=== PATIENT | male | born 1975 | race African-American/Black ===

== ENCOUNTER 2016-05-24 19:56 | Inpatient (IN) | payer MEDICAID, OTHER ==
[~2016-05-24] VITALS: Ht 167.6 cm; Wt 65.1 kg
[~2016-05-24 19:56] MED LIST: GABA-529 PO; IBUP-1546 PO; TRAM50TA4 PO
[2016-05-24] MEDS ORDERED: LORazepam 2 MG/ML VIAL IM ONE (22:15)
[2016-05-24] MEDS ORDERED: HALOPERIDOL LACTATE 5 MG/ML VIAL IM ONE (22:15)
[2016-05-24] MEDS ORDERED: DiphenhydrAMINE HCL 50 MG/ML VIAL IM ONE (22:15)
[2016-05-25] MEDS ORDERED: HALOPERIDOL 5 MG TABLET PO PRN (00:15)
[2016-05-25] MEDS ORDERED: ZOLPIDEM TARTRATE 10 MG TABLET PO PRN (00:15)
[2016-05-25 00:20] VITALS: BP 133/79
[2016-05-25 00:20] LABS: BASOPHILS # (AUTO) 0.03 K/uL (0.00-0.20); BASOPHILS % (AUTO) 0.4 % (0.0-2.0); EOSINOPHILS # (AUTO) 0.29 K/uL (0.00-0.70); HEMATOCRIT 42.9 % (41-53); HEMOGLOBIN 14.6 g/dL (13.5-17.5); LYMPHOCYTES # (AUTO) 2.3 K/uL (1.0-4.8); LYMPHOCYTES % (AUTO) 26.4 % (22.0-44.0); MEAN CORPUSCULAR HEMOGLOBIN 31.8 pg (26.0-34.0); MEAN CORPUSCULAR HGB CONC 33.9 G/dL (31.0-37.0); MEAN CORPUSCULAR VOLUME 94 fL (80-100); MONOCYTES # (AUTO) 0.8 K/uL (0.1-1.0); MONOCYTES % (AUTO) 9.5 % (2.0-9.0); NEUTROPHILS # (AUTO) 5.2 K/uL (1.8-7.7); NEUTROPHILS % (AUTO) 60.4 % (40.0-70.0); PLATELET COUNT (AUTO) 321 K/uL (150-450); RED BLOOD CELL COUNT(AUTO) 4.58 MIL/uL (4.50-5.90); RED CELL DISTRIBUTION WIDTH 14.5 % (11.5-14.5); WHITE BLOOD COUNT (AUTO) 8.7 K/uL (4.5-11.0)
[2016-05-25 00:27] LABS: ANION GAP 10 mmol/L (8-16); CALCIUM, TOTAL 8.6 mg/dL (8.8-10.5); CARBON DIOXIDE 28 mmol/L (22-29); CHLORIDE 104 mmol/L (98-107); CREATININE 1.28 mg/dL (0.60-1.30); GLOMERULAR FILTR. RATE CALC > 60 mL/min (>60); POTASSIUM 3.7 mmol/L (3.5-5.1); SODIUM SERUM 142 mmol/L (136-145); UREA NITROGEN, BLOOD 23 mg/dL (7-18)
[2016-05-25 00:28] VITALS: BP_SYST 100
[2016-05-25 00:33] LABS: ALANINE AMINOTRANSFERASE 24 U/L (12-78); ALBUMIN 4.1 g/dL (3.4-5.0); ASPARTATE AMINOTRANSFERASE 19 U/L (15-37); BILIRUBIN,TOTAL 0.3 mg/dL (0.1-1.0); TOTAL PROTEIN, SERUM 7.3 g/dL (6.4-8.2)
[2016-05-25] MEDS ORDERED: INFLUENZA VIRUS VACCINE QVS 2016-17 (3YR+)/PF 60 MCG/0.5 ML SYRINGE IM ONE (01:00)
[2016-05-25] MEDS: GABAPENTIN 100 MG CAPSULE PO SCH ×2 (11:51→18:21)
[2016-05-25] MEDS: BENZTROPINE MESYLATE 0.5 MG TABLET PO SCH (21:53)
[2016-05-25] MEDS: HALOPERIDOL 5 MG TABLET PO SCH (21:53)
[2016-05-26 08:30] VITALS: BP 124/61
[2016-05-26] MEDS: BENZTROPINE MESYLATE 0.5 MG TABLET PO SCH ×2 (09:00→20:24)
[2016-05-26] MEDS: GABAPENTIN 100 MG CAPSULE PO SCH ×2 (09:00→16:30)
[2016-05-26] MEDS: HALOPERIDOL 5 MG TABLET PO SCH ×2 (09:00→20:25)
[2016-05-26 09:10] VITALS: BP 124/61
[2016-05-26 16:21] VITALS: BP 121/72
[2016-05-27 08:30] VITALS: BP 142/93
[2016-05-27] MEDS: HALOPERIDOL 5 MG TABLET PO SCH ×3 (08:52→20:49)
[2016-05-27] MEDS: LORazepam 2 MG TABLET PO PRN ×2 (08:52→17:56)
[2016-05-27] MEDS: BENZTROPINE MESYLATE 0.5 MG TABLET PO SCH ×2 (08:52→20:48)
[2016-05-27] MEDS: GABAPENTIN 100 MG CAPSULE PO SCH ×2 (08:52→17:56)
[2016-05-27 09:46] VITALS: BP 142/93
[2016-05-28] MEDS: GABAPENTIN 100 MG CAPSULE PO SCH ×2 (09:00→17:51)
[2016-05-28] MEDS: HALOPERIDOL 5 MG TABLET PO SCH ×2 (09:00→20:43)
[2016-05-28 09:07] VITALS: BP 115/68
[2016-05-28] MEDS: BENZTROPINE MESYLATE 0.5 MG TABLET PO SCH ×2 (09:11→20:43)
[2016-05-28] MEDS: LORazepam 2 MG TABLET PO PRN ×2 (10:31→19:45)
[2016-05-28 16:30] VITALS: BP 130/68
[2016-05-29] MEDS: GABAPENTIN 100 MG CAPSULE PO SCH (08:43)
[2016-05-29] MEDS: HALOPERIDOL 5 MG TABLET PO SCH (08:43)
[2016-05-29] MEDS: BENZTROPINE MESYLATE 0.5 MG TABLET PO SCH (08:43)
[2016-05-29 09:18] VITALS: BP 138/76
[2016-05-29] MEDS ORDERED: HALO5 PO (10:16)
[2016-05-29] MEDS ORDERED: BENZ0.5T6 PO (10:17)
== END 2016-05-29 10:40 | disposition home or self-care (01) | DRG 751 ==
LOC: EEVIPCON 19:58 → EMS 19:58 → 3EC 23:30
PROVIDERS: ADMIT Psychiatry & Neurology Psychiatry; ATTEND Psychiatry & Neurology Psychiatry
DX: F29 Unspecified psychosis not due to a substance or known physiological condition (principal); F15.20 Other stimulant dependence, uncomplicated; M54.5 Low back pain; G47.00 Insomnia, unspecified; F20.0 Paranoid schizophrenia; E55.9 Vitamin D deficiency, unspecified; F12.90 Cannabis use, unspecified, uncomplicated; F17.210 Nicotine dependence, cigarettes, uncomplicated; Z28.21 Immunization not carried out because of patient refusal; Z91.14 Patient's other noncompliance with medication regimen; Z79.899 Other long term (current) drug therapy; Z59.0 Homelessness; Z71.51 Drug abuse counseling and surveillance of drug abuser; Z71.6 Tobacco abuse counseling
CPT/HCPCS: 82306; 96372; 99285; G0480; J1200; J1630; J2060

== ENCOUNTER 2019-08-13 17:23 | Emergency (ER) | payer MEDICAID, OTHER ==
[~2019-08-13] VITALS: Ht 167.6 cm; Wt 77.3 kg
[~2019-08-13 17:23] MED LIST changes: +BENZ0.5T44 PO; +GABA-1216 PO; -GABA-529 PO; +HALO5TAB2 PO; -IBUP-1546 PO; -TRAM50TA4 PO
[2019-08-13 18:06] VITALS: BP 117/77
[2019-08-13] MEDS: LIDOCAINE 1% 10 ML VIAL INJ ONE (18:06)
[2019-08-13] MEDS: BACITRACIN 0.9 GM PACKET OINTMENT TP ONE (18:06)
[2019-08-13] MEDS: HALOPERIDOL LACTATE 5 MG/ML VIAL IM ONE (18:29)
[2019-08-13] MEDS: LORazepam 2 MG/ML VIAL IM ONE (18:30)
[2019-08-13] MEDS: IBUPROFEN 600 MG TABLET PO ONE (18:31)
[2019-08-13 18:47] LABS: BASOPHILS % (AUTO) 0.6 % (0.0-2.0); EOSINOPHILS % (AUTO) 2.9 % (1.0-6.0); HEMATOCRIT 42.1 % (41-53); LYMPHOCYTES # (AUTO) 2.2 K/uL (1.0-4.8); LYMPHOCYTES % (AUTO) 19.5 % (22.0-44.0); MEAN CORPUSCULAR HEMOGLOBIN 31.7 pg (26.0-34.0); MEAN CORPUSCULAR HGB CONC 33.4 G/dL (31.0-37.0); MEAN CORPUSCULAR VOLUME 95 fL (80-100); MONOCYTES # (AUTO) 1.1 K/uL (0.1-1.0); MONOCYTES % (AUTO) 9.9 % (2.0-9.0); NEUTROPHILS # (AUTO) 7.7 K/uL (1.8-7.7); NEUTROPHILS % (AUTO) 67.1 % (40.0-70.0); PLATELET COUNT (AUTO) 280 K/uL (150-450); RED BLOOD CELL COUNT(AUTO) 4.42 MIL/uL (4.50-5.90); RED CELL DISTRIBUTION WIDTH 13.6 % (11.5-14.5)
[2019-08-13 18:50] LABS: AMPHET/METH SCREEN,URINE POSITIVE (NEGATIVE); BARBITURATE SCREEN, URINE NEGATIVE (NEGATIVE); BENZODIAZEPINES SCREEN,URINE NEGATIVE (NEGATIVE); CANNABINOID SCREEN,URINE POSITIVE (NEGATIVE); COCAINE SCREEN,URINE NEGATIVE (NEGATIVE); METHADONE SCREEN, URINE NEGATIVE (NEGATIVE); OPIATE SCREEN,URINE NEGATIVE (NEGATIVE)
[2019-08-13 18:52] LABS: PHENCYCLIDINE SCREEN,URINE POSITIVE (NEGATIVE)
[2019-08-13 18:54] LABS: ANION GAP 10 mmol/L (8-16); CALCIUM, TOTAL 8.9 mg/dL (8.8-10.5); CARBON DIOXIDE 31 mmol/L (22-29); CHLORIDE 106 mmol/L (98-107); CREATININE 1.37 mg/dL (0.60-1.30); GLOMERULAR FILTR. RATE CALC > 60 mL/min (>60); GLUCOSE,RANDOM 79 mg/dL (70-110); SODIUM SERUM 147 mmol/L (136-145); UREA NITROGEN, BLOOD 14 mg/dL (7-18)
[2019-08-13 19:00] LABS: ALANINE AMINOTRANSFERASE 29 U/L (12-78); ALBUMIN 4.1 g/dL (3.4-5.0); ALKALINE PHOSPHATASE 86 U/L (46-116); ASPARTATE AMINOTRANSFERASE 21 U/L (15-37); BILIRUBIN,TOTAL 0.6 mg/dL (0.1-1.0); TOTAL PROTEIN, SERUM 7.8 g/dL (6.4-8.2)
== END 2019-08-13 21:20 | disposition home or self-care (01) ==
LOC: EMS 17:29
DX: S05.42XA Penetrating wound of orbit with or without foreign body, left eye, initial encounter (principal); F15.10 Other stimulant abuse, uncomplicated; F20.0 Paranoid schizophrenia; F16.10 Hallucinogen abuse, uncomplicated; F17.210 Nicotine dependence, cigarettes, uncomplicated; F12.90 Cannabis use, unspecified, uncomplicated; F19.90 Other psychoactive substance use, unspecified, uncomplicated; Y04.0XXA Assault by unarmed brawl or fight, initial encounter; Y93.89 Activity, other specified; Y92.89 Other specified places as the place of occurrence of the external cause; Y99.8 Other external cause status
CPT/HCPCS: 12013; 36415; 80053; 80307; 85025; 96372; 99284; 99406; G0480; J1630; J2060; J3490

== ENCOUNTER 2019-08-31 09:51 | Emergency (ER) | payer OTHER ==
[~2019-08-31] VITALS: Ht 167.6 cm; Wt 80.9 kg
[2019-08-31 10:14] VITALS: BP 109/58
== END 2019-08-31 10:37 | disposition home or self-care (01) ==
LOC: EMS 09:59
DX: S01.112D Laceration without foreign body of left eyelid and periocular area, subsequent encounter (principal); F17.210 Nicotine dependence, cigarettes, uncomplicated; F12.90 Cannabis use, unspecified, uncomplicated; F15.90 Other stimulant use, unspecified, uncomplicated; X58.XXXD Exposure to other specified factors, subsequent encounter
CPT/HCPCS: 99406

== ENCOUNTER 2019-09-24 14:20 | Emergency (ER) | payer OTHER ==
[~2019-09-24] VITALS: Ht 167.6 cm; Wt 79.5 kg
[2019-09-24] MEDS ORDERED: BACITRACIN 0.9 GM PACKET OINTMENT TP ONE (15:00)
[2019-09-24] MEDS ORDERED: CEPHALEXIN MONOHYDRATE 500 MG CAPSULE PO ONE (15:00)
[2019-09-24 15:50] VITALS: BP 113/67
== END 2019-09-24 16:08 | disposition home or self-care (01) ==
LOC: EMS 14:24
DX: L03.116 Cellulitis of left lower limb (principal); B35.3 Tinea pedis; F31.9 Bipolar disorder, unspecified; F20.9 Schizophrenia, unspecified; F17.210 Nicotine dependence, cigarettes, uncomplicated; F12.90 Cannabis use, unspecified, uncomplicated; F19.90 Other psychoactive substance use, unspecified, uncomplicated

== ENCOUNTER 2020-01-09 13:58 | Emergency (ER) | payer OTHER ==
[~2020-01-09] VITALS: Ht 167.6 cm; Wt 81.8 kg
[2020-01-09] MEDS ORDERED: TOLNAFTATE 1% TP ONE (14:45)
[2020-01-09 15:17] LABS: BASOPHILS % (AUTO) 0.9 % (0.0-2.0); EOSINOPHILS % (AUTO) 4.6 % (1.0-6.0); HEMATOCRIT 39.8 % (41-53); HEMOGLOBIN 13.5 g/dL (13.5-17.5); LYMPHOCYTES # (AUTO) 1.6 K/uL (1.0-4.8); LYMPHOCYTES % (AUTO) 20.8 % (22.0-44.0); MEAN CORPUSCULAR HGB CONC 33.9 G/dL (31.0-37.0); MEAN CORPUSCULAR VOLUME 97 fL (80-100); MONOCYTES # (AUTO) 0.7 K/uL (0.1-1.0); MONOCYTES % (AUTO) 9.7 % (2.0-9.0); NEUTROPHILS # (AUTO) 4.9 K/uL (1.8-7.7); PLATELET COUNT (AUTO) 284 K/uL (150-450); RED BLOOD CELL COUNT(AUTO) 4.09 MIL/uL (4.50-5.90); RED CELL DISTRIBUTION WIDTH 13.8 % (11.5-14.5)
[2020-01-09 15:30] LABS: ANION GAP 2 mmol/L (8-16); CARBON DIOXIDE 32 mmol/L (22-29); CHLORIDE 106 mmol/L (98-107); CREATININE 1.31 mg/dL (0.60-1.30); GLUCOSE,RANDOM 96 mg/dL (70-110); POTASSIUM 4.1 mmol/L (3.5-5.1); SODIUM SERUM 140 mmol/L (136-145); UREA NITROGEN, BLOOD 12 mg/dL (7-18)
[2020-01-09 15:31] LABS: CALCIUM, TOTAL 8.3 mg/dL (8.8-10.5); GLOMERULAR FILTR. RATE CALC > 60 mL/min (>60)
[2020-01-09 15:36] LABS: ALANINE AMINOTRANSFERASE 28 U/L (12-78); ALBUMIN 3.7 g/dL (3.4-5.0); ALKALINE PHOSPHATASE 98 U/L (46-116); ASPARTATE AMINOTRANSFERASE 17 U/L (15-37); BILIRUBIN,TOTAL 0.2 mg/dL (0.1-1.0); TOTAL PROTEIN, SERUM 7.2 g/dL (6.4-8.2)
[2020-01-09 15:54] VITALS: BP 135/83
== END 2020-01-09 16:18 | disposition home or self-care (01) ==
LOC: EMS 13:58
DX: F15.10 Other stimulant abuse, uncomplicated (principal); F41.9 Anxiety disorder, unspecified; F31.9 Bipolar disorder, unspecified; F20.9 Schizophrenia, unspecified; F17.210 Nicotine dependence, cigarettes, uncomplicated; F12.90 Cannabis use, unspecified, uncomplicated
CPT/HCPCS: 36415; 80053; 85025; 99283; G0480

== ENCOUNTER 2020-04-11 00:58 | Emergency (ER) | payer OTHER ==
[~2020-04-11] VITALS: Ht 167.6 cm; Wt 80.9 kg
[2020-04-11] MEDS ORDERED: ACETAMINOPHEN 325 MG TABLET PO ONE (02:00)
[2020-04-11] MEDS ORDERED: PERTUSS(ACELL),DIPH,TET VAC/PF 0.5 ML VIAL IM ONE (02:30)
[2020-04-11 03:11] VITALS: BP 122/83
== END 2020-04-11 03:35 | disposition home or self-care (01) ==
LOC: EMS 00:59
DX: S02.2XXA Fracture of nasal bones, initial encounter for closed fracture (principal); H11.33 Conjunctival hemorrhage, bilateral; J45.909 Unspecified asthma, uncomplicated; F31.9 Bipolar disorder, unspecified; F20.9 Schizophrenia, unspecified; F17.210 Nicotine dependence, cigarettes, uncomplicated; F12.90 Cannabis use, unspecified, uncomplicated; F19.90 Other psychoactive substance use, unspecified, uncomplicated; W50.1XXA Accidental kick by another person, initial encounter; Y93.89 Activity, other specified; Y92.89 Other specified places as the place of occurrence of the external cause; Y99.8 Other external cause status
CPT/HCPCS: 70450; 70486; 90471; 90715; 99285

== ENCOUNTER 2020-05-30 19:10 | Emergency (ER) | payer OTHER ==
[~2020-05-30] VITALS: Ht 167.6 cm; Wt 81.8 kg
[2020-05-30] MEDS ORDERED: LORazepam 0.5 MG TABLET PO ONE (20:00)
[2020-05-30] MEDS ORDERED: LORazepam 1 MG TABLET PO ONE (20:00)
[2020-05-30 20:13] LABS: BASOPHILS % (AUTO) 0.9 % (0.0-2.0); HEMATOCRIT 41.5 % (41-53); HEMOGLOBIN 13.8 g/dL (13.5-17.5); LYMPHOCYTES # (AUTO) 2.2 K/uL (1.0-4.8); LYMPHOCYTES % (AUTO) 25.9 % (22.0-44.0); MEAN CORPUSCULAR HEMOGLOBIN 32.1 pg (26.0-34.0); MEAN CORPUSCULAR HGB CONC 33.3 G/dL (31.0-37.0); MEAN CORPUSCULAR VOLUME 96 fL (80-100); MONOCYTES # (AUTO) 0.8 K/uL (0.1-1.0); MONOCYTES % (AUTO) 9.4 % (2.0-9.0); NEUTROPHILS # (AUTO) 4.9 K/uL (1.8-7.7); NEUTROPHILS % (AUTO) 57.8 % (40.0-70.0); PLATELET COUNT (AUTO) 262 K/uL (150-450); RED BLOOD CELL COUNT(AUTO) 4.31 MIL/uL (4.50-5.90); RED CELL DISTRIBUTION WIDTH 13.5 % (11.5-14.5)
[2020-05-30 20:32] LABS: CALCIUM, TOTAL 8.4 mg/dL (8.8-10.5); CREATININE 1.34 mg/dL (0.60-1.30); POTASSIUM 3.7 mmol/L (3.5-5.1)
[2020-05-30 20:34] LABS: ALBUMIN 3.8 g/dL (3.4-5.0); BILIRUBIN,TOTAL 0.4 mg/dL (0.1-1.0); TOTAL PROTEIN, SERUM 7.3 g/dL (6.4-8.2)
[2020-05-30 21:13] VITALS: BP 130/82
== END 2020-05-30 21:25 | disposition home or self-care (01) ==
LOC: EMS 19:10
DX: N64.4 Mastodynia (principal); F19.10 Other psychoactive substance abuse, uncomplicated
CPT/HCPCS: 93005; 99285; 36415-L1; 36415-TC; 71045-TC

== ENCOUNTER 2021-11-08 09:48 | Inpatient (IN) | payer OTHER ==
[~2021-11-08] VITALS: Ht 167.6 cm; Wt 81.6 kg
[~2021-11-08 09:48] MED LIST changes: -BENZ0.5T44 PO; +BENZ0.5T49 PO
[2021-11-08] MEDS ORDERED: KETOROLAC TROMETHAMINE 30 MG/ML VIAL IVP ONE (10:45)
[2021-11-08] MEDS ORDERED: SODIUM CHLORIDE 0.9% 1,000 ML IV ONE ×3 (10:45→12:30)
[2021-11-08 11:06] LABS: BASOPHILS % (AUTO) 0.6 % (0.0-2.0); EOSINOPHILS % (AUTO) 3.5 % (1.0-6.0); HEMATOCRIT 43.4 % (41-53); HEMOGLOBIN 14.4 g/dL (13.5-17.5); LYMPHOCYTES # (AUTO) 1.7 K/uL (1.0-4.8); LYMPHOCYTES % (AUTO) 15.1 % (22.0-44.0); MEAN CORPUSCULAR HEMOGLOBIN 31.3 pg (26.0-34.0); MEAN CORPUSCULAR HGB CONC 33.3 G/dL (31.0-37.0); MEAN CORPUSCULAR VOLUME 94 fL (80-100); MONOCYTES # (AUTO) 0.9 K/uL (0.1-1.0); MONOCYTES % (AUTO) 8.4 % (2.0-9.0); NEUTROPHILS % (AUTO) 72.4 % (40.0-70.0); PLATELET COUNT (AUTO) 267 K/uL (150-450); RED BLOOD CELL COUNT(AUTO) 4.61 MIL/uL (4.50-5.90); RED CELL DISTRIBUTION WIDTH 13.4 % (11.5-14.5)
[2021-11-08 11:32] LABS: CALCIUM, TOTAL 8.8 mg/dL (8.8-10.5); CREATININE 1.62 mg/dL (0.60-1.30)
[2021-11-08 11:37] LABS: ALBUMIN 3.8 g/dL (3.4-5.0); BILIRUBIN,TOTAL 0.3 mg/dL (0.1-1.0); TOTAL PROTEIN, SERUM 7.3 g/dL (6.4-8.2)
[2021-11-08] MEDS ORDERED: MORPHINE SULFATE 4 MG/ML SYRINGE IVP ONE (12:15)
[2021-11-08 12:24] LABS: APPEARANCE,URINE CLEAR (CLEAR); BILIRUBIN,URINE NEGATIVE (NEGATIVE); GLUCOSE, URINE (UA) NEGATIVE (NEGATIVE); KETONES,URINE TRACE mg/dL (NEGATIVE); LEUKOCYTE ESTERASE ,URINE TRACE (NEGATIVE); NITRATE,URINE NEGATIVE (NEGATIVE); OCCULT BLOOD,URINE LARGE (NEGATIVE); PROTEIN,URINE 30-70 mg/dL (NEGATIVE); SPECIFIC GRAVITIY, URINE 1.035 (1.003-1.030); UROBILINOGEN,URINE <=1.0 mg/dL (<=1.0)
[2021-11-08] MEDS ORDERED: ONDANSETRON HCL 4 MG/2 ML VIAL IVP PRN ×2 (12:30)
[2021-11-08] MEDS ORDERED: MORPHINE SULFATE 4 MG/ML SYRINGE IVP PRN (12:30)
[2021-11-08 12:32] LABS: RBC,URINE 51-100 /HPF (0-2); WBC,URINE 0-2 /HPF (0-5)
[2021-11-08 12:37] LABS: BACTERIA,URINE Moderate /HPF (None Seen)
[2021-11-08 12:38] LABS: CALCIUM OXALATE CRYSTALS,UR Few /LPF (None Seen)
[2021-11-08] MEDS ORDERED: CefTRIAXone 1 GM/DEXTROSE 50 ML IV ONE (12:45)
[2021-11-08 12:47] LABS: COVID AG,FIA SOURCE NASOPHARYNGEAL
[2021-11-08] MEDS: SODIUM CHLORIDE 0.9% 1,000 ML IV SCH ×2 (13:25→21:07)
[2021-11-08 14:06] LABS: AMPHET/METH SCREEN,URINE POSITIVE (NEGATIVE); BARBITURATE SCREEN, URINE NEGATIVE (NEGATIVE); BENZODIAZEPINES SCREEN,URINE NEGATIVE (NEGATIVE); CANNABINOID SCREEN,URINE POSITIVE (NEGATIVE); COCAINE SCREEN,URINE NEGATIVE (NEGATIVE); METHADONE SCREEN, URINE NEGATIVE (NEGATIVE); OPIATE SCREEN,URINE NEGATIVE (NEGATIVE); PHENCYCLIDINE SCREEN,URINE NEGATIVE (NEGATIVE)
[2021-11-08] MEDS: DOCUSATE SODIUM 100 MG CAPSULE PO SCH (21:00)
[2021-11-08 21:03] VITALS: BP 119/74
[2021-11-08] MEDS: MORPHINE SULFATE 2 MG/ML SYRINGE IVP PRN (21:04)
[2021-11-08 22:00] VITALS: BP 127/83
[2021-11-08] MEDS: LORazepam 2 MG/ML VIAL IVP PRN (22:10)
[2021-11-09] MEDS: LORazepam 2 MG/ML VIAL IVP PRN ×3 (02:11→21:15)
[2021-11-09 06:00] VITALS: BP 120/67
[2021-11-09 08:44] VITALS: BP 123/79
[2021-11-09] MEDS: SODIUM CHLORIDE 0.9% 1,000 ML IV SCH (09:32)
[2021-11-09] MEDS: DOCUSATE SODIUM 100 MG CAPSULE PO SCH ×2 (09:35→21:14)
[2021-11-09] MEDS: PANTOPRAZOLE SODIUM 40 MG/VIAL IVP SCH (09:35)
[2021-11-09] MEDS ORDERED: SODIUM CHLORIDE 0.9% 1,000 ML ONE (10:08)
[2021-11-09] MEDS ORDERED: SODIUM CL IRRIG SOLN BAG 3,000 ML IRRIG ONE ×2 (11:41→11:42)
[2021-11-09] MEDS ORDERED: LIDOCAINE/PF 2% 5 ML VIAL IM ONE (12:00)
[2021-11-09] MEDS ORDERED: GLYCOPYRROLATE 0.2 MG/ML VIAL IM ONE (12:00)
[2021-11-09] MEDS ORDERED: MIDAZOLAM HCL 2 MG/2 ML VIAL IVP ONE (12:00)
[2021-11-09] MEDS ORDERED: ONDANSETRON HCL 4 MG/2 ML VIAL IVP ONE (12:00)
[2021-11-09] MEDS ORDERED: PROPOFOL 1% 20 ML VIAL IVP ONE (12:00)
[2021-11-09] MEDS ORDERED: SUCCINYLCHOLINE CHLORIDE 20 MG/ML 10 ML VIAL IVP ONE (12:00)
[2021-11-09] MEDS ORDERED: NEOSTIGMINE METHYLSULFATE 1 MG/ML 10 ML VIAL IVP ONE (12:00)
[2021-11-09] MEDS ORDERED: FentaNYL CITRATE PF 100 MCG/2 ML VIAL IVP ONE (12:00)
[2021-11-09] MEDS: CefTRIAXone 1 GM/DEXTROSE 50 ML IV SCH (13:00)
[2021-11-09] MEDS: MORPHINE SULFATE 2 MG/ML SYRINGE IVP PRN ×2 (15:21→19:52)
[2021-11-09 16:16] VITALS: BP 111/63
[2021-11-09 19:43] VITALS: BP 121/69
[2021-11-10] MEDS: LORazepam 2 MG/ML VIAL IVP PRN ×2 (02:18→06:31)
[2021-11-10 04:47] VITALS: BP 106/55
[2021-11-10] MEDS: SODIUM CHLORIDE 0.9% 1,000 ML IV SCH ×2 (04:54→22:30)
[2021-11-10] MEDS: MORPHINE SULFATE 2 MG/ML SYRINGE IVP PRN ×3 (04:54→21:20)
[2021-11-10 08:00] VITALS: BP 117/66
[2021-11-10 08:46] LABS: ANION GAP 12 mmol/L (8-16); CALCIUM, TOTAL 8.3 mg/dL (8.8-10.5); CARBON DIOXIDE 25 mmol/L (22-29); CHLORIDE 101 mmol/L (98-107); CREATININE 1.17 mg/dL (0.60-1.30); GLUCOSE,RANDOM 66 mg/dL (70-110); POTASSIUM 3.7 mmol/L (3.5-5.1); SODIUM SERUM 138 mmol/L (136-145); UREA NITROGEN, BLOOD 12 mg/dL (7-18)
[2021-11-10 08:47] LABS: GLOMERULAR FILTR. RATE CALC > 60 mL/min (>60)
[2021-11-10] MEDS: PANTOPRAZOLE SODIUM 40 MG/VIAL IVP SCH (09:03)
[2021-11-10] MEDS: DOCUSATE SODIUM 100 MG CAPSULE PO SCH ×2 (09:03→21:16)
[2021-11-10] MEDS: CefTRIAXone 1 GM/DEXTROSE 50 ML IV SCH (13:05)
[2021-11-10] MEDS: ACETAMINOPHEN 325 MG TABLET PO PRN (15:39)
[2021-11-10] MEDS ORDERED: QUET200T30 PO (16:50)
[2021-11-10] MEDS ORDERED: CITA-144 PO (16:50)
[2021-11-10 19:52] VITALS: BP 109/61
[2021-11-11] MEDS: SODIUM CHLORIDE 0.9% 1,000 ML IV SCH ×3 (04:12→16:38)
[2021-11-11 04:30] VITALS: BP 115/74
[2021-11-11 07:17] VITALS: BP 112/66
[2021-11-11 07:31] LABS: BASOPHILS % (AUTO) 0.7 % (0.0-2.0); EOSINOPHILS % (AUTO) 5.6 % (1.0-6.0); HEMATOCRIT 43.2 % (41-53); HEMOGLOBIN 14.8 g/dL (13.5-17.5); LYMPHOCYTES # (AUTO) 1.6 K/uL (1.0-4.8); LYMPHOCYTES % (AUTO) 16.2 % (22.0-44.0); MEAN CORPUSCULAR HEMOGLOBIN 31.9 pg (26.0-34.0); MEAN CORPUSCULAR HGB CONC 34.2 G/dL (31.0-37.0); MEAN CORPUSCULAR VOLUME 93 fL (80-100); MONOCYTES # (AUTO) 0.9 K/uL (0.1-1.0); MONOCYTES % (AUTO) 9.2 % (2.0-9.0); NEUTROPHILS # (AUTO) 6.8 K/uL (1.8-7.7); NEUTROPHILS % (AUTO) 68.3 % (40.0-70.0); PLATELET COUNT (AUTO) 274 K/uL (150-450); RED BLOOD CELL COUNT(AUTO) 4.63 MIL/uL (4.50-5.90)
[2021-11-11 07:49] LABS: ALANINE AMINOTRANSFERASE 19 U/L (12-78); ALBUMIN 3.3 g/dL (3.4-5.0); ALKALINE PHOSPHATASE 91 U/L (46-116); ANION GAP 6 mmol/L (8-16); ASPARTATE AMINOTRANSFERASE 14 U/L (15-37); BILIRUBIN,TOTAL 0.5 mg/dL (0.1-1.0); CALCIUM, TOTAL 8.6 mg/dL (8.8-10.5); CARBON DIOXIDE 28 mmol/L (22-29); CHLORIDE 104 mmol/L (98-107); GLUCOSE,RANDOM 107 mg/dL (70-110); LIPASE 317 U/L (73-393); POTASSIUM 3.5 mmol/L (3.5-5.1); SODIUM SERUM 138 mmol/L (136-145); UREA NITROGEN, BLOOD 5 mg/dL (7-18)
[2021-11-11 07:51] LABS: GLOMERULAR FILTR. RATE CALC > 60 mL/min (>60)
[2021-11-11] MEDS: DOCUSATE SODIUM 100 MG CAPSULE PO SCH ×2 (08:14→20:31)
[2021-11-11] MEDS: PANTOPRAZOLE SODIUM 40 MG/VIAL IVP SCH (09:00)
[2021-11-11] MEDS: MORPHINE SULFATE 2 MG/ML SYRINGE IVP PRN ×3 (12:02→20:30)
[2021-11-11] MEDS: CefTRIAXone 1 GM/DEXTROSE 50 ML IV SCH (12:08)
[2021-11-11 14:39] VITALS: BP 104/62
[2021-11-11 20:00] VITALS: BP 112/63
[2021-11-12 04:30] VITALS: BP 101/51
[2021-11-12] MEDS: SODIUM CHLORIDE 0.9% 1,000 ML IV SCH ×2 (06:27→18:27)
[2021-11-12 07:03] LABS: BASOPHILS % (AUTO) 0.4 % (0.0-2.0); EOSINOPHILS % (AUTO) 4.6 % (1.0-6.0); HEMATOCRIT 42.5 % (41-53); HEMOGLOBIN 14.3 g/dL (13.5-17.5); LYMPHOCYTES # (AUTO) 1.4 K/uL (1.0-4.8); LYMPHOCYTES % (AUTO) 14.5 % (22.0-44.0); MEAN CORPUSCULAR HEMOGLOBIN 31.5 pg (26.0-34.0); MEAN CORPUSCULAR HGB CONC 33.5 G/dL (31.0-37.0); MEAN CORPUSCULAR VOLUME 94 fL (80-100); MONOCYTES # (AUTO) 1.1 K/uL (0.1-1.0); MONOCYTES % (AUTO) 10.9 % (2.0-9.0); NEUTROPHILS % (AUTO) 69.6 % (40.0-70.0); PLATELET COUNT (AUTO) 260 K/uL (150-450); RED BLOOD CELL COUNT(AUTO) 4.53 MIL/uL (4.50-5.90)
[2021-11-12 07:12] LABS: ANION GAP 11 mmol/L (8-16); CALCIUM, TOTAL 8.6 mg/dL (8.8-10.5); CARBON DIOXIDE 27 mmol/L (22-29); CHLORIDE 102 mmol/L (98-107); CREATININE 1.18 mg/dL (0.60-1.30); GLUCOSE,RANDOM 103 mg/dL (70-110); POTASSIUM 3.7 mmol/L (3.5-5.1); SODIUM SERUM 140 mmol/L (136-145); UREA NITROGEN, BLOOD 5 mg/dL (7-18)
[2021-11-12 07:13] LABS: GLOMERULAR FILTR. RATE CALC > 60 mL/min (>60)
[2021-11-12 07:34] VITALS: BP 106/54
[2021-11-12] MEDS: DOCUSATE SODIUM 100 MG CAPSULE PO SCH ×2 (09:19→19:48)
[2021-11-12] MEDS: PANTOPRAZOLE SODIUM 40 MG/VIAL IVP SCH (09:19)
[2021-11-12] MEDS: ACETAMINOPHEN 325 MG TABLET PO PRN (09:20)
[2021-11-12] MEDS: MORPHINE SULFATE 2 MG/ML SYRINGE IVP PRN ×3 (12:21→22:48)
[2021-11-12] MEDS: CefTRIAXone 1 GM/DEXTROSE 50 ML IV SCH (12:37)
[2021-11-12 15:30] VITALS: BP 114/62
[2021-11-12 20:00] VITALS: BP 111/63
[2021-11-12] MEDS ORDERED: QUEtiapine FUMARATE 200 MG TABLET PO PRN (22:30)
[2021-11-13] MEDS: SODIUM CHLORIDE 0.9% 1,000 ML IV SCH (02:44)
[2021-11-13 04:45] VITALS: BP 133/77
[2021-11-13] MEDS: MORPHINE SULFATE 2 MG/ML SYRINGE IVP PRN (07:42)
[2021-11-13 08:25] VITALS: BP 98/56
[2021-11-13] MEDS: DOCUSATE SODIUM 100 MG CAPSULE PO SCH (09:00)
[2021-11-13] MEDS: PANTOPRAZOLE SODIUM 40 MG/VIAL IVP SCH (09:09)
[2021-11-13 10:43] LABS: BASOPHILS % (AUTO) 1.2 % (0.0-2.0); HEMATOCRIT 40.2 % (41-53); HEMOGLOBIN 13.4 g/dL (13.5-17.5); LYMPHOCYTES % (AUTO) 25.8 % (22.0-44.0); MEAN CORPUSCULAR HEMOGLOBIN 31.5 pg (26.0-34.0); MEAN CORPUSCULAR HGB CONC 33.4 G/dL (31.0-37.0); MEAN CORPUSCULAR VOLUME 94 fL (80-100); MONOCYTES % (AUTO) 13.4 % (2.0-9.0); NEUTROPHILS # (AUTO) 3.9 K/uL (1.8-7.7); NEUTROPHILS % (AUTO) 50.6 % (40.0-70.0); PLATELET COUNT (AUTO) 243 K/uL (150-450); RED BLOOD CELL COUNT(AUTO) 4.26 MIL/uL (4.50-5.90); RED CELL DISTRIBUTION WIDTH 13.2 % (11.5-14.5)
[2021-11-13 10:59] LABS: ANION GAP 6 mmol/L (8-16); CALCIUM, TOTAL 8.6 mg/dL (8.8-10.5); CARBON DIOXIDE 26 mmol/L (22-29); CHLORIDE 105 mmol/L (98-107); GLOMERULAR FILTR. RATE CALC > 60 mL/min (>60); GLUCOSE,RANDOM 94 mg/dL (70-110); SODIUM SERUM 137 mmol/L (136-145); UREA NITROGEN, BLOOD 5 mg/dL (7-18)
[2021-11-13 11:08] LABS: ALANINE AMINOTRANSFERASE 26 U/L (12-78); ALBUMIN 3.2 g/dL (3.4-5.0); ALKALINE PHOSPHATASE 85 U/L (46-116); ASPARTATE AMINOTRANSFERASE 20 U/L (15-37); BILIRUBIN,TOTAL 0.2 mg/dL (0.1-1.0); LIPASE 137 U/L (73-393); TOTAL PROTEIN, SERUM 6.8 g/dL (6.4-8.2)
[2021-11-13] MEDS: CefTRIAXone 1 GM/DEXTROSE 50 ML IV SCH (12:17)
[2021-11-13] MEDS: ACETAMINOPHEN 325 MG TABLET PO PRN (13:36)
[2021-11-13] MEDS ORDERED: ASPI-1450 PO (14:19)
[2021-11-13] MEDS ORDERED: CEFD300C18 PO (14:30)
[2021-11-13 15:40] VITALS: BP 126/73
== END 2021-11-13 17:15 | disposition home or self-care (01) | DRG 659 ==
LOC: EMS 10:02 → 6S 18:35
PROVIDERS: ADMIT Internal Medicine; ATTEND Internal Medicine
PROC: 0T768DZ Dilation of Right Ureter with Intraluminal Device, Via Natural or Artificial Opening Endoscopic (ICD-10-PCS; principal; 2021-11-09 12:00)
DX: N13.2 Hydronephrosis with renal and ureteral calculous obstruction (principal); K85.90 Acute pancreatitis without necrosis or infection, unspecified; F17.210 Nicotine dependence, cigarettes, uncomplicated; F25.1 Schizoaffective disorder, depressive type; F15.10 Other stimulant abuse, uncomplicated; F31.9 Bipolar disorder, unspecified; F12.10 Cannabis abuse, uncomplicated; N17.9 Acute kidney failure, unspecified; Z87.442 Personal history of urinary calculi; Z79.899 Other long term (current) drug therapy; Z71.6 Tobacco abuse counseling
CPT/HCPCS: 74176; 80048; 80053; 81001; 83690; 85025; 87081; 87086; 93005; 99285; C9113; J0330; J0696; J1885; J2060; J2250; J2270; J2405; J2704; J3010; J3490; J7030; Q9967

== ENCOUNTER 2021-11-17 11:49 | Emergency (ER) | payer OTHER ==
[~2021-11-17] VITALS: Ht 167.6 cm; Wt 79.1 kg
[~2021-11-17 11:49] MED LIST changes: +ASPI-1450 PO; -BENZ0.5T49 PO; +CEFD300C18 PO; +CITA-144 PO; -GABA-1216 PO; -HALO5TAB2 PO; +QUET200T30 PO
[2021-11-17 13:31] LABS: BASOPHILS % (AUTO) 0.7 % (0.0-2.0); EOSINOPHILS % (AUTO) 6.3 % (1.0-6.0); HEMATOCRIT 41.4 % (41-53); HEMOGLOBIN 13.8 g/dL (13.5-17.5); LYMPHOCYTES # (AUTO) 2.3 K/uL (1.0-4.8); LYMPHOCYTES % (AUTO) 23.5 % (22.0-44.0); MEAN CORPUSCULAR HEMOGLOBIN 31.9 pg (26.0-34.0); MEAN CORPUSCULAR HGB CONC 33.3 G/dL (31.0-37.0); MEAN CORPUSCULAR VOLUME 96 fL (80-100); MONOCYTES # (AUTO) 1.3 K/uL (0.1-1.0); MONOCYTES % (AUTO) 12.6 % (2.0-9.0); NEUTROPHILS # (AUTO) 5.6 K/uL (1.8-7.7); NEUTROPHILS % (AUTO) 56.9 % (40.0-70.0); PLATELET COUNT (AUTO) 298 K/uL (150-450); RED BLOOD CELL COUNT(AUTO) 4.32 MIL/uL (4.50-5.90); RED CELL DISTRIBUTION WIDTH 13.4 % (11.5-14.5)
[2021-11-17] MEDS ORDERED: ARIP882S2 IM (13:40)
[2021-11-17 13:44] VITALS: BP 126/63
[2021-11-17 14:07] LABS: APPEARANCE,URINE CLEAR (CLEAR); BILIRUBIN,URINE NEGATIVE (NEGATIVE); GLUCOSE, URINE (UA) NEGATIVE (NEGATIVE); KETONES,URINE NEGATIVE (NEGATIVE); LEUKOCYTE ESTERASE ,URINE LARGE (NEGATIVE); NITRATE,URINE NEGATIVE (NEGATIVE); OCCULT BLOOD,URINE LARGE (NEGATIVE); PH,URINE 6.5 (5.0-8.0); PROTEIN,URINE 30-70 mg/dL (NEGATIVE); SPECIFIC GRAVITIY, URINE 1.024 (1.003-1.030); UROBILINOGEN,URINE <=1.0 mg/dL (<=1.0)
[2021-11-17 14:13] LABS: BACTERIA,URINE Moderate /HPF (None Seen); RBC,URINE 51-100 /HPF (0-2); WBC,URINE 26-50 /HPF (0-5)
[2021-11-17 14:29] LABS: ANION GAP 2 mmol/L (8-16); CARBON DIOXIDE 34 mmol/L (22-29); CHLORIDE 105 mmol/L (98-107); CREATININE 1.33 mg/dL (0.60-1.30); GLUCOSE,RANDOM 76 mg/dL (70-110); POTASSIUM 4.5 mmol/L (3.5-5.1); SODIUM SERUM 141 mmol/L (136-145); UREA NITROGEN, BLOOD 16 mg/dL (7-18)
[2021-11-17 14:34] LABS: ALANINE AMINOTRANSFERASE 49 U/L (12-78); ALBUMIN 3.9 g/dL (3.4-5.0); ALKALINE PHOSPHATASE 115 U/L (46-116); ASPARTATE AMINOTRANSFERASE 18 U/L (15-37); BILIRUBIN,TOTAL 0.2 mg/dL (0.1-1.0); TOTAL PROTEIN, SERUM 7.6 g/dL (6.4-8.2)
[2021-11-17 14:36] LABS: GLOMERULAR FILTR. RATE CALC > 60 mL/min (>60)
[2021-11-17] MEDS ORDERED: CEFD300C18 PO (14:48)
== END 2021-11-17 14:55 | disposition home or self-care (01) ==
LOC: EMS 12:14
DX: N39.0 Urinary tract infection, site not specified (principal); F17.210 Nicotine dependence, cigarettes, uncomplicated; F12.90 Cannabis use, unspecified, uncomplicated; F19.90 Other psychoactive substance use, unspecified, uncomplicated; Z98.890 Other specified postprocedural states
CPT/HCPCS: 80053; 81001; 85025; 87086; 99283